=== PATIENT | male | born 1935 | race Two or more races ===

== ENCOUNTER 2017-11-20 11:37 | Emergency (ER) | payer OTHER ==
[~2017-11-20] VITALS: Ht 170.2 cm; Wt 55.0 kg
[2017-11-20 13:03] LABS: HEMATOCRIT. 35.4 % (42.0-52.0); HEMOGLOBIN. 11.5 g/dL (14.0-18.0); MEAN CORPUSCULAR HEMOGLOBIN 31.9 pg (28.0-32.0); MEAN CORPUSCULAR VOLUME 98.4 fL (80.0-94.0); MEAN PLATELET VOLUME 8.6 fl (7.4-10.4); RED BLOOD CELL COUNT 3.59 mill/uL (4.7-6.1); RED CELL DISTRIBUTION WIDTH 21.1 % (11.6-14.6)
[2017-11-20 13:09] LABS: INR 2.6; PROTHROMBIN TIME 26.2 sec (9.1-11.1)
[2017-11-20 13:14] LABS: PLATELET 39 x1000/uL (130-400)
[2017-11-20 13:25] LABS: CHLORIDE 97 mEq/L (98-107)
[2017-11-20 13:28] LABS: PLATELET ESTIMATE MARKEDLY DECREASED
[2017-11-20] MEDS ORDERED: DILTIAZEM HCL 5MG/ML 5ML VIAL IV ONE ×2 (14:45→17:45)
[2017-11-20] MEDS ORDERED: ONDANSETRON HCL 4MG/2ML VIAL IV ONE (14:45)
[2017-11-20] MEDS ORDERED: DILTIAZEM HCL 240MG ER (24HR) PO ONE (17:45)
[2017-11-20 18:49] VITALS: BP 109/68
== END 2017-11-20 19:06 | disposition short-term general hospital (02) ==
LOC: ER 11:51
DX: I48.92 Unspecified atrial flutter (principal); D69.6 Thrombocytopenia, unspecified; N18.6 End stage renal disease; Z99.2 Dependence on renal dialysis; F03.90 Unspecified dementia, unspecified severity, without behavioral disturbance, psychotic disturbance, mood disturbance, and anxiety
CPT/HCPCS: 36415; 70450; 71045; 80053; 84484; 85025; 85610; 93005; 96374; 96375; 99291; J2405

== ENCOUNTER 2019-02-09 09:49 | Emergency (ER) | payer OTHER ==
[~2019-02-09] VITALS: Ht 152.4 cm; Wt 58.2 kg
[~2019-02-09 09:49] MED LIST: CINA30 MT; DIGO125T20 MT; FURO-151 MT; LISI-186 MT; MIRT15TA MT; NEPVIT MT; OMEP20CA5 MT; SEVE0.8P PO; VITA1CAP MT; WARF-53 MT
[2019-02-09 10:25] LABS: BASOPHILS % 1.1 % (0.0-2.0); EOSINOPHILS % 0.5 % (0.0-5.0); LYMPHOCYTES % 12.3 % (20.0-50.0); MEAN CORPUSCULAR HEMOGLOBIN 28.7 pg (28.0-32.0); MEAN CORPUSCULAR VOLUME 89.2 fL (80.0-94.0); MEAN PLATELET VOLUME 7.5 fl (7.4-10.4); MONOCYTES % 6.6 % (2.0-8.0); NEUTROPHILS % 79.5 % (40.0-76.0); PLATELET 148 x1000/uL (130-400); RED BLOOD CELL COUNT 2.19 mill/uL (4.7-6.1); RED CELL DISTRIBUTION WIDTH 21.8 % (11.6-14.6)
[2019-02-09 10:28] LABS: CHLORIDE 105 mEq/L (98-107)
[2019-02-09 10:32] LABS: ETHANOL BLOOD < 10 mg/dL
[2019-02-09 10:35] LABS: HEMATOCRIT. 19.5 % (42.0-52.0); HEMOGLOBIN. 6.3 g/dL (14.0-18.0)
[2019-02-09 10:37] LABS: CREATINE KINASE 54 IU/L (39-308)
[2019-02-09] MEDS ORDERED: PHYTONADIONE 10 MG/10 ML ORALSYR PO ONE ×2 (12:00→12:15)
[2019-02-09 12:07] LABS: TOTAL IRON BINDING CAPACITY 143 ug/dL (250-450)
[2019-02-09] MEDS ORDERED: PANTOPRAZOLE SODIUM 40 MG/VIAL IV ONE (13:15)
[2019-02-09 16:50] VITALS: BP 159/53
== END 2019-02-09 17:30 | disposition short-term general hospital (02) ==
LOC: ER 10:09 → CANBEDREQ 13:49 → ER 17:30
DX: R41.82 Altered mental status, unspecified (principal); D64.9 Anemia, unspecified; I12.0 Hypertensive chronic kidney disease with stage 5 chronic kidney disease or end stage renal disease; N18.6 End stage renal disease; I48.91 Unspecified atrial fibrillation; R79.1 Abnormal coagulation profile; Z79.899 Other long term (current) drug therapy; Z99.2 Dependence on renal dialysis
CPT/HCPCS: 36415; 36430; 70450; 71045; 80053; 80162; 80320; 82550; 82962; 83540; 83550; 83880; 84484; 85025; 85610; 86850; 86900; 86901; 86920; 93005; 96372; 99285; C9113; J3430; P9016; G0480